=== PATIENT | male | born 1985 | race Caucasian/White ===

== ENCOUNTER 2016-07-10 18:15 | Emergency (ER) | payer OTHER ==
[2016-07-10 18:23] VITALS: RESP 16; O2SAT 93
[2016-07-10] MEDS ORDERED: ACETAMINOPHEN 500 MG TAB PO ONE (18:24)
[2016-07-10] MEDS ORDERED: BENZONATATE 100 MG CAP PO ONE (19:25)
[2016-07-10] MEDS ORDERED: IBUPROFEN 800 MG TAB PO ONE (19:25)
[2016-07-10] MEDS ORDERED: OSELTAMIVIR PHOSPHATE 75 MG CAP PO ONE (19:25)
--- NOTE | 2016-07-10 19:31 | UCPHY ---
H & P Time Seen by Provider: 07/10/16 18:56 Patient Type: New HPI/ROS: HPI Cough, nasal congestion, sore throat, fever, body aches, muscle aches. 31-year-old male by private vehicle with his girlfriend. Complains of above symptoms onset afternoon. Reports cough has gotten worse. Cough described as dry and nonproductive. ROS: Constitutional: No fever, no chills. No weakness. Eyes: No discharge. No changes in vision. ENT: As above. Respiratory: As above. No shortness of breath. Cardiac: No chest pain, no palpitations. Gastrointestinal: No abdominal pain, no vomiting, no diarrhea. Genitourinary: No hematuria. No dysuria or increased frequency with urination. Musculoskeletal: As above. Skin: No rashes. Neurological: No headache. No focal weakness or altered sensation. Past medical history: Kidney stones, cholecystectomy, depression, anxiety, pertussis. Social history: Nonsmoker. No alcohol. As above. Physical Exam: General Appearance: Alert, no distress. Intermittent dry cough. This patient is responding to questions appropriately and in full sentences. This patient appears well-hydrated and well-nourished. Eyes: Pupils equal and round no pallor or injection. No lid edema, erythema or injection. ENT, Mouth: Mucous membranes are moist. The pharyngeal tissues are unremarkable. No edema or swelling. No asymmetry suggestive of abscess. No erythema or exudates. Respiratory: There are no retractions, lungs are clear to auscultation with good air movement bilaterally. Cardiovascular: Regular rate and rhythm. Mild tachycardia. No murmur. Neurological: Motor sensory function is grossly intact. Cranial nerves are normal. Gait is normal. Skin: Warm and dry, no rashes. Musculoskeletal: Neck is supple and nontender. No cervical or submandibular lymphadenopathy. Extremities are symmetrical. All joints range without pain or impingement. Psychiatric: No agitation. No depression. Database: EKG: Imaging: Chest x-ray PA and lateral; the cardiac mediastinal silhouette is unremarkable. No evidence of infiltrate or pneumothorax. No acute cardiopulmonary disease process noted. Interpreted by me. Procedures: Emergency department course: Patient given 1 g of Tylenol, 800 mg of ibuprofen, 200 mg of Tessalon Perle and sent for chest x-ray. I discussed administration of Tamiflu. He endorses. He was given 75 mg of Tamiflu. 8:15 p.m., patient re-evaluated. Resting comfortably at this time. He states that he feels better. Results of his chest x-ray were discussed. I explained that antibiotics were not indicated at this time. He feels comfortable going home and I feel he is safe for discharge with diagnosis of influenza. He will be prescribed Tamiflu as well as antitussive medication and instructions on dosing of ibuprofen. Return to emergency department precautions reviewed. Follow-up discussed. All of his questions were answered. He was discharged in good condition. Differential Diagnosis: The differential diagnosis on this patient includes but is not limited to influenza, viral syndrome. Pneumonia, pertussis unlikely. This represents a partial list of diagnoses considered. These considerations are based on history , physical exam, past history, reassessment and diagnostic testing. Smoking Status: Never smoked Constitutional: Initial Vital Signs Temperature (C) 38.4 C H 07/10/16 18:19 Heart Rate 111 H 07/10/16 18:19 Respiratory Rate 16 07/10/16 18:19 Blood Pressure 128/75 H 07/10/16 18:19 O2 Sat (%) 93 07/10/16 18:19 Allergies/Adverse Reactions: Penicillins Allergy (Unknown, Verified 07/10/16 18:21) Vomiting Home Medications: Medication Instructions Recorded Ambien 07/10/16 Benzonatate [Tessalon Pearles] 100 mg PO TID #12 cap 07/10/16 HYDROcodone/HOMATROPINE HYCODA 1 tsp PO Q4-6PRN PRN #120 ml 07/10/16 [Hycodan Syrup (RX)] Lamictal 07/10/16 Oseltamivir Phosphate [Tamiflu 75 75 mg PO BID #10 cap 07/10/16 mg (RX)] Medical Decision Making - Data Points Laboratory Results: 07/10/16 18:26 Influenza Typ A,B (DFA) NEGATIVE FOR FLU (NEGATIVE) Medications Given: Discontinued Medications Acetaminophen (Tylenol) 1,000 mg PO EDNOW ONE Stop: 07/10/16 18:25 Last Admin: 07/10/16 18:30 Dose: 1,000 mg Departure - Departure Disposition: Home, Routine, Self-Care Clinical Impression: Influenza Condition: Good Instructions: Influenza (ED) Additional Instructions: Read and follow provided instructions. Follow-up with your primary care physician in Tuesday or Tuesday of this week for re-evaluation Take medications as prescribed. Ibuprofen dosin mg every 6 hours with meals for the next 3 days only. Return to the emergency department for worsening symptoms, worsening cough, difficulty breathing or other serious concerns. Referrals: NONE *PRIMARY CARE P,. [Primary Care Provider] - As per Instructions Prescriptions: Benzonatate [Tessalon Pearles] 100 mg PO TID #12 cap HYDROcodone/HOMATROPINE HYCODA [Hycodan Syrup (RX)] 1 tsp PO Q4-6PRN PRN #120 ml PRN Reason: Cough Oseltamivir Phosphate [Tamiflu 75 mg (RX)] 75 mg PO BID #10 cap - PQRS PQRS Measurement: Not applicable.
[2016-07-10] MEDS ORDERED: IBUPROFEN 200 MG TAB PO ONE (20:09)
[2016-07-10 20:16] VITALS: BP 112/82; PULSE 86; TEMP 97.7
== END 2016-07-10 20:16 | disposition home or self-care (01) ==
LOC: CED 18:15
DX: R05 Cough (principal); R09.81 Nasal congestion; R07.0 Pain in throat; R50.9 Fever, unspecified; M79.1 Myalgia
CPT/HCPCS: 71020-PO; 87400-PO; 99203-PO; G0463-PO